=== PATIENT | female | born 1950 | race Caucasian/White ===

== ENCOUNTER 2019-04-08 08:47 | Emergency (ER) | payer MEDICARE, OTHER ==
--- OUTSIDE RECORDS SUMMARY | 2019-04-08 09:02 | XMS REPORT | Continuity of Care Document ---
:1950 External Reference #:[id number] Author Name Kaela Alvarez PA Address [address] [place] [id number] Problems Active Problems Provider Date Gastroesophageal reflux disease Fernando Marquez DO Onset: 01/16/2013 Neurogenic bladder Fernando Marquez DO Onset: 01/16/2013 Insomnia Fernando Marquez DO Onset: 01/16/2013 Benign essential hypertension Fernando Marquez DO Onset: 01/16/2013 Irritable bowel syndrome Fernando Marquez DO Onset: 01/16/2013 Female climacteric state Ian Bowden MD Onset: 09/15/2007 Generalized anxiety disorder Ian Bowden MD Onset: 09/15/2007 Urinary incontinence Ian Bowden MD Onset: 09/15/2007 Hearing loss Ian Bowden MD Onset: 09/15/2007 Family history of diabetes mellitus Ian Bowden MD Onset: 09/15/2007 Social History Type Date Description Comments Sex Unknown Tobacco Use Start: Unknown End: Unknown Former Cigarette Smoker ETOH Use Rarely consumes alcohol Tobacco Use Start: Unknown End: Unknown Patient is a former smoker Smoking Status Reviewed: 01/02/19 Patient is a former smoker Allergies, Adverse Reactions, Alerts Active Allergies Reaction Severity Comments Date Augmentin DIARRHEA Severe 05/10/2014 Eszopiclone Nightmares, Insomnia 02/05/2017 Inactive Allergies NKDA 03/23/2014 Medications Active Medications SIG Qnty Indications Ordering Date Provider Hydrochlorothiazide 1 by mouth 90tabs Fernando Marquez, 02/20/2019 25mg Tablets every day DO Fluticasone Propionate 2 sprays to 9.900ml Fernando Marquez, 06/27/2018 Nasal [place] both nostril DO 50mcg/Act Suspension as needed Citalopram Hydrobromide 1 and 1/2 by 135tabs Fernando Marquez, 12/27/2017 20mg mouth every DO Tablets day Zolpidem Tartrate 1/2 or 1 by 30tabs Fernando Marquez, 02/05/2017 10mg Tablets mouth every DO night at bedtime as needed sleep do not fill till 11/26/18 Celecoxib take 1 capsule 90caps M25.562 Fernando Marquez, 12/17/2016 200mg Capsules daily with DO food generic Atorvastatin Calcium 1 by mouth 90tabs Fernando Marquez, 06/08/2016 10mg Tablets every day DO Diltiazem HCL ER Coated take 1 capsule 90caps Fernando Marquez, 12/04/2015 Beads by mouth daily DO 180mg Caps ER 24HR Cyclobenzaprine HCL take 1 tablet 90tabs M54.5 Fernando Marquez, 06/13/2015 10mg Tablets by mouth every DO 8 hours as needed muscle spasm Alprazolam 1 by mouth 60tabs Fernando Marquez, 02/17/2010 0.25mg Tablets twice a day as DO needed anxiety Omeprazole take 1 capsule 90caps Fernando Marquez, 06/11/[address] every day DO Oxybutynin Chloride take 1 tablet 90tabs N31.9 Fernando Marquez, 01/09/2008 5mg Tablets by mouth daily DO History Medications Lisinopril-Hydrochlorothiazide 1 by mouth 30tabs Jimmy, 03/05/2019 - 20-25mg Tablets every day DO Fernando 03/23/2019 Immunizations CPT Code Status Date Vaccine Reaction Lot # [id number] Given 12/29/2018 Influenza Vac, Quadrivalent, Split, 0.5mL Dosage, Im Use 08688 Given 10/27/2018 Shingrix (Shingles) Zoster Vaccine HZV, Recombinant, Subunit, Adj 53792 Given 06/27/2018 Prevnar 13 Pneumococal Conjugate Vaccine [id number] Given 01/21/2018 Flu Vaccine NOS [facility] Vital Signs Date Vital Result Comment 03/23/2019 2:26pm Weight 168.00 lb Heart Rate 72 /min BP Systolic 164 mmHg BP Diastolic 74 mmHg Respiratory Rate 18 /min Height 67 inches 5'7" BMI (Body Mass Index) 26.3 kg/m2 03/05/2019 1:35pm Weight 171.00 lb Heart Rate 62 /min BP Systolic 154 mmHg BP Diastolic 78 mmHg Respiratory Rate 18 /min Height 67 inches 5'7" BMI (Body Mass Index) 26.8 kg/m2 Results Test Acquired Date Facility Test Result H/L Range Note CBC with Auto Diff-fcmg 12/26/2018 [facility] W[facility] 5.8 K/uL 4.1-11.0 RBC 4.60 M/uL 4.00-5.40 Hemoglobin 14.5 gm/dL 12.0-16.0 Hematocrit 42.1 % 36.0-47.0 MCV 91.6 fL 80.0-97.0 MCH 31.4 pg 27.0-32.0 MCHC 34.3 g/dL 32.0-36.0 RDW 13.3 % 11.5-14.5 PLT Count 258 K/ul 140-400 MPV 7.4 FL 7.1-10.7 Neutrophil 50.0 % 35.0-75.0 Lymphocyte 36.8 % 16.0-52.0 Monocyte 9.1 % 2.0-10.0 Eosinophil 2.8 % 0.0-5.0 Basophil 1.3 % 0.0-4.0 Abs Neutrophils 2.9 K/uL 2.1-8.0 Abs Lymphocytes 2.1 K/uL 0.8-5.5 Abs Monocytes 0.5 K/uL 0.1-1.0 Abs Eosinophils 0.2 K/uL 0.0-0.5 Abs Basophils 0.1 K/uL 0.0-0.3 Basic (BMP) 12/26/2018 [facility] Sodium 142 mmol/L 135-146 1 Potassium 4.4 mmol/L 3.5-5.2 Chloride# 104 mmol/L 97-110 2 Carbon Dioxide 28 mmol/L 24-34 Glucose 105 mg/dL 70-105 BUN 20 mg/dL 6-26 Creatinine 0.9 mg/dL 0.5-1.4 Calcium 9.4 mg/dL 8.5-10.5 3 Female Egfr 62 >60 4 Male Egfr 82 >60 5 Anion Gap 10 mmol/L 5-15 6 Laboratory test finding 12/26/2018 [facility] TSH 1.92 uIU/mL 0.35-4.94 Lipid Treatment 12/26/2018 [facility] Cholesterol 168 mg/dL 50-199 Triglycerides 171 mg/dL 30-200 HDL 58 mg/dL 35-85 7 Chol/ HDL Ratio 2.9 ratio Low 3.7-5.6 VLDL 34 mg/dL High 2-29 LDL (Calc) 76 mg/dL 20-99 8 Alt 16 U/L 3-42 Ast 15 U/L 8-42 Laboratory test finding 12/26/2018 [facility] Magnesium 2.1 mg/dL 1.5-2.7 Hemoglobin A1c 12/26/2018 [facility] Hemoglobin A1c 6.2 % High 4.1-5.9 Estimated Average Glucose Calc 131 mg/dL 71-140 1 Updated reference range on new analyzer 2 Updated reference range on new analyzer 3 Updated reference range 07-16-2018 4 Concerning GFR Guidelines for Americans: Normal function or mild renal disease, if clinically at risk: >/= 60 mL/min Moderately decreased: 30-59 Severely decreased: 15-29 Renal failure: <15 There is reduced accuracy above 60ml/min/1.73 m squared, but the numeric value may be clinically useful in the near 60 range 5 Concerning GFR Guidelines: Normal function or mild renal disease, if clinically at risk: >/= 60 mL/min Moderately decreased: 30-59 Severely decreased: 15-29 Renal failure: <15 There is reduced accuracy above 60ml/min/1.73 m squared, but the numeric value may be clinically useful in the near 60 range Glomerular Filtration Rate (GFR) is estimated based on the CKD-EPI equation, which assumes a steady state for creatinine as recommended by the National Kidney Disease Education Program in conjunction with the National Institutes of Health and the National Kidney Foundation. Clinical conditions in which it may be necessary to measure GFR by using clearance methods include extremes of age and body size, severe malnutrition or obesity, diseases of skeletal muscle, paraplegia or quadriplegia, vegetarian diet, rapidly changing kidney function, and calculation of the dose of potentially toxic drugs that are excreted by the kidneys. 6 Updated Reference Range 7 Per NCEP ATP III Guidelines: Results lower than 40 mg/dL are suggestive of increased risk for coronary artery disease. Results > or = to 60 mg/dL are considered a negative risk factor. 8 Per NCEP ATP III Guidelines: Normal Population <130 Patients with medical conditions: CHD/DM Optimal: <100 Borderline high: 130-159 High: 160-189 Very high: >189 Procedures Date Code Description Status 03/23/2019 10924 Electrocardiogram Complete Completed 01/02/2019 89466 Brief Emotional/Behav Assessment W/ Scoring Doc Per Completed Standard Inst 05/23/2018 [id number] Mammogram Completed 05/03/2017 [id number] Mammogram Completed 07/17/2016 [id number] Colonoscopy Completed 03/26/2016 [id number] Mammogram Completed 11/26/2014 [id number] Mammogram Completed Medical Devices Description No Information Available Encounters Type Date Location Provider Dx Diagnosis Office Visit 03/05/2019 Kaela Gage PA I10 Essential (primary) 1:45p hypertension Z68.26 Body mass index (BMI) 26.0-26.9, adult Office Visit 01/02/2019 1:00p [facility] Fernando Marquez DO Z00.00 Encntr for general adult medical exam w/o abnormal findings K21.9 Gastro-esophageal reflux disease without esophagitis E78.2 Mixed hyperlipidemia K58.0 Irritable bowel syndrome with diarrhea N31.9 Neuromuscular dysfunction of bladder, unspecified R00.2 Palpitations K80.80 Other cholelithiasis without obstruction I10 Essential (primary) hypertension G47.00 Insomnia, unspecified E04.9 Nontoxic goiter, unspecified F41.1 Generalized anxiety disorder R41.840 Attention and concentration deficit G56.01 Carpal tunnel syndrome, RIGHT upper limb M19.049 Primary osteoarthritis, unspecified hand R73.01 Impaired fasting glucose M25.551 Pain in RIGHT hip Z68.27 Body mass index (BMI) 27.0-27.9, adult Assessments Date Code Description Provider 03/23/2019 I10 Essential (primary) hypertension Kaela Alvarez PA 03/23/2019 R00.2 Palpitations Kaela Alvarez PA 03/23/2019 Z68.26 Body mass index (BMI) 26.0-26.9, adult Kaela Alvarez PA 03/05/2019 I10 Essential (primary) hypertension Kaela Alvarez PA 03/05/2019 Z68.26 Body mass index (BMI) 26.0-26.9, adult Kaela Alvarez PA 01/02/2019 Z00.00 Encounter for general adult medical Fernando Marquez DO examination without abnormal findings 01/02/2019 K21.9 Gastro-esophageal reflux disease without MarquezFernando sanchez, esophagitis 01/02/2019 E78.2 Mixed hyperlipidemia Fernando Marquez, DO 01/02/2019 K58.0 Irritable bowel syndrome with diarrhea Fernando Marquez, DO 01/02/2019 N31.9 Neuromuscular dysfunction of bladder, Fernando Marquez, DO unspecified 01/02/2019 R00.2 Palpitations Fernando Marquez, DO 01/02/2019 K80.80 Other cholelithiasis without obstruction Fernando Marquez, DO 01/02/2019 I10 Essential (primary) hypertension MarquezFernando, DO 01/02/2019 G47.00 Insomnia, unspecified Fernando Marquez, DO 01/02/2019 E04.9 Nontoxic goiter, unspecified Fernando Marquez, DO 01/02/2019 F41.1 Generalized anxiety disorder MarquezFernando, DO 01/02/2019 R41.840 Attention and concentration deficit MarquezFernando, DO 01/02/2019 G56.01 Carpal tunnel syndrome, RIGHT upper limb MarquezFernando, DO 01/02/2019 M19.049 Primary osteoarthritis, unspecified hand MarquezFernando, DO 01/02/2019 R73.01 Impaired fasting glucose MarquezFernando, DO 01/02/2019 M25.551 Pain in RIGHT hip MarquezFernando, DO 01/02/2019 Z68.27 Body mass index (BMI) 27.0-27.9, adult MarquezFernando, DO 12/26/2018 E78.2 Mixed hyperlipidemia MarquezFernando, DO 12/26/2018 E78.2 Mixed hyperlipidemia Schedule, Laboratory 12/26/2018 K21.9 Gastro-esophageal reflux disease without Jimmy Fernando esophagitis 12/26/2018 K21.9 Gastro-esophageal reflux disease without Schedule, Laboratory esophagitis 12/26/2018 R73.01 Impaired fasting glucose MarquezFernando, DO 12/26/2018 R73.01 Impaired fasting glucose Schedule, Laboratory 12/26/2018 E78.2 Mixed hyperlipidemia [facility] 12/26/2018 K21.9 Gastro-esophageal reflux disease without [facility] esophagitis 12/26/2018 R73.01 Impaired fasting glucose [facility] Plan of Treatment Future Appointment(s):06/26/2019 8:25 am - Schedule, Laboratory at [facility]2019 1:00 pm - Fernando Marquez, DO at [facility]03/23/2019 - Kaela Alvarez PAI10 Essential (primary) hypertensionComments:Improving with HCTZ and lifestyle changesWill continue to monitorCall with elevated readings at homeFollow up:As [id number] PalpitationsNew Orders:Holter Monitor, Ordered: 03/23/19Comments: EKG stable compared to previousDiscussed options of Holter, stress testWill check Holter for evalConsider stress test if normal/symptoms worsen/persistTo ER with chest pain, SOBZ68.26 Body mass index (BMI) 26.0-26.9, adult Functional Status Description No Information Available Mental Status Description No Information Available Referrals Description No Information Available
--- OUTSIDE RECORDS SUMMARY | 2019-04-08 09:03 | XMS REPORT | Continuity of Care Document ---
:1950 External Reference #:[id number] Author Name Nora Vargas, [facility] Address [address] [place] [id number] Care Team Providers Name Role Phone Fernando Marquez DO - Family Medicine Care Team Information Free Lance Model Problems Description No Information Available Social History Type Date Description Comments Sex Unknown Tobacco Use Start: Unknown End: Unknown Quit ETOH Use Currently consumes alcohol Recreational Drug Use Marijuana Allergies, Adverse Reactions, Alerts Description No Known Drug Allergies Medications Active Medications SIG Qnty Indications Ordering Provider Date Zolpidem Tartrate 1 tab by mouth Unknown Tablets every night Celecoxib 1 by mouth every Unknown Capsules day Omeprazole 1 capsule by Unknown 20mg Capsules DR mouth every day Multi Complete 1 cap by mouth Unknown Capsules every other day Atorvastatin Calcium 1 by mouth every Fernando Marquez, 10mg night DO Tablets Alprazolam 1 tablet by Fernando Marquez, 0.25mg Tablets mouth as needed DO Cyclobenzaprine HCL Take 1 Tablet By Unknown 10mg Mouth Every 8 Tablets Hours as Needed Muscle Spasm Cartia XT 1 cap by mouth Fernando Marquez, 180mg Caps ER 24HR every day DO Citalopram Hydrobromide 1 tab by mouth Fernando Marquez, 20mg every day DO Tablets Oxybutynin Chloride 1 tab by mouth Fernando Marquez, 5mg every day DO Tablets Medications Administered in Office Medication SIG Qnty Indications Ordering Provider Date Depomedrol 40mg/1cc Nora Vargas, 01/28/2019 (methylprednisolone acetate) [facility] Injection Depomedrol 40mg/1cc Nora Vargas., 09/26/2018 (methylprednisolone acetate) [facility] Injection Depo-Medrol 20mg Nora Vargas, 09/26/2018 Injection [facility] Depomedrol 40mg/1cc Nora Vargas., 06/20/2018 (methylprednisolone acetate) [facility] Injection Betamethasone Acetate & Sodium Nora Vargas S., 06/20/2018 Phosphate 3 MG Of Each [facility] Injection Betamethasone Acetate & Sodium Nora Vargas S., 05/21/2017 Phosphate 3 MG Of Each [facility] Injection Betamethasone Acetate & Sodium VargasNora S., 05/21/2017 Phosphate 3 MG Of Each [facility] Injection Betamethasone Acetate & Sodium Nora Vargas S., 11/26/2016 Phosphate 3 MG Of Each [facility] Injection Betamethasone Acetate & Sodium Nora Vargas S., 08/20/2016 Phosphate 3 MG Of Each [facility] Injection Betamethasone Acetate & Sodium Nora Vargas S., 08/20/2016 Phosphate 3 MG Of Each [facility] Injection Methylprednisolone acetate Nora Vargas, 10/04/2015 (Depomedrol) 80mg injection [facility] Injection Methylprednisolone acetate Nora Vargas, 08/11/2014 (Depomedrol) 80mg injection [facility] Injection Methylprednisolone acetate Nora Vargas, 08/11/2014 (Depomedrol) 80mg injection [facility] Injection Methylprednisolone acetate Nora Vargas, 07/10/2013 (Depomedrol) 80mg injection [facility] Injection Immunizations Description No Information Available Vital Signs Date Vital Result Comment 02/19/2019 10:15am BP Systolic 166 mmHg BP Diastolic 79 mmHg Body Temperature 96.3 F Heart Rate 64 /min Height 67 inches 5'7" [place] body weight in kilograms 61 kg O2 % [facility]ldC Oximetry 97 % 01/28/2019 1:48pm BP Systolic 165 mmHg BP Diastolic 71 mmHg Body Temperature 97.6 F Heart Rate 68 /min Height 67 inches 5'7" Weight 179.00 lb BMI (Body Mass Index) 28.0 kg/m2 BSA (Body Surface Area) 1.93 m2 [place] body weight in kilograms 61 kg O2 % BldC Oximetry 99 % Results Description No Information Available Procedures Date Code Description Status 02/19/2019 16212 Radiologic Exam Hip Unilateral With Pelvis 2-3 Views Completed 01/28/2019 Asp./Injection major joint Completed 09/26/2018 Asp./Injection major joint Completed Medical Devices Description No Information Available Encounters Type Date Location Provider Dx Diagnosis Office Visit 02/19/2019 Orthopaedic Office Nora Vargas M16.12 Unilateral primary 10:15a S., [facility] osteoarthritis, left hip M25.552 Pain in left hip Office Visit 01/28/2019 Orthopaedic Sam M70.61 Trochanteric 2:00p Office Nora Rincon, bursitis, right [facility] hip M70.62 Trochanteric bursitis, left hip M25.551 Pain in right hip M25.552 Pain in left hip Assessments Date Code Description Provider 02/19/2019 M16.12 Unilateral primary osteoarthritis, left Nora Vargas , [facility] hip 02/19/2019 M25.552 Pain in left hip Nora Vargas., [facility] 01/28/2019 M70.61 Trochanteric bursitis, right hip Nora Vargas., [facility] 01/28/2019 M70.62 Trochanteric bursitis, left hip Nora Vargas S., [facility] 01/28/2019 M25.551 Pain in right hip Nora Vargas., [facility] 01/28/2019 M25.552 Pain in left hip Nora Vargas., [facility] 09/26/2018 M17.12 Unilateral primary osteoarthritis, left Nora Vargas , [facility] knee 09/26/2018 M25.562 Pain in left knee Nora Vargas, [facility] Plan of Treatment Future Appointment(s):04/06/2019 10:30 am - Nora Vargas [facility] at [facility]02/19/[facility] Un[facility] primary osteoarthritis, left hipNew Orders:Intra-articular hip injection, left, Scheduled: 02/26/19M25.552 Pain in left hipNew Orders:Intra-articular hip injection, left, Scheduled: 02/26/19 Functional Status Description No Information Available Mental Status Description No Information Available Referrals Description No Information Available
--- OUTSIDE RECORDS SUMMARY | 2019-04-08 09:03 | XMS REPORT | Continuity of Care Document ---
:1950 External Reference #:[id number] Author Name Kaela Alvarez PA Address [address] [place] [id number] Problems Active Problems Provider Date Gastroesophageal reflux [...] Medications SIG Qnty Indications Ordering Date Provider Lisinopril-Hydrochlorothia 1 by mouth 30tabs Fernando Marquez, 03/05/2019 zide every day DO 20-25mg Tablets Hydrochlorothiazide 1 by mouth 30tabs Fernando Marquez, 02/20/2019 25mg Tablets every day DO Fluticasone Propionate 2 sprays to 9.900ml Fernando Marquez, 06/27/2018 Nasal [place] both nostril DO 50mcg/Act Suspension as needed [...] 01/09/2008 5mg Tablets by mouth daily DO Immunizations CPT Code Status Date Vaccine Reaction Lot # [id number] Given 12/29/2018 Influenza Vac, Quadrivalent, Split, 0.5mL Dosage, Im Use 85743 Given 10/27/2018 Shingrix (Shingles) Zoster Vaccine HZV, Recombinant, Subunit, Adj [id number] Given 06/27/2018 Prevnar 13 Pneumococal Conjugate Vaccine [id number] Given 01/21/2018 Flu Vaccine NOS [facility] Vital Signs Date Vital Result Comment 03/05/2019 1:35pm Weight 171.00 lb Heart Rate 62 /min BP Systolic 154 mmHg BP Diastolic 78 mmHg Respiratory Rate 18 /min Height 67 inches 5'7" BMI (Body Mass Index) 26.8 kg/m2 01/02/2019 1:00pm Weight 177.00 lb Heart Rate 60 /min BP Systolic 124 mmHg BP Diastolic 64 mmHg Respiratory Rate 17 /min Height 67 inches 5'7" BMI (Body Mass Index) 27.7 kg/m2 Results Test Acquired Date Facility Test [...] Magnesium 2.1 mg/dL 1.5-2.7 Hemoglobin A1c 12/26/2018 [facility] Hemoglobin A1c 6.2 % High 4.1-5.9 Estimated [...] high: >189 Procedures Date Code Description Status 01/02/2019 01591 Brief Emotional/Behav Assessment W/ Scoring Doc Per Completed [facility] 05/23/2018 [id number] Mammogram Completed 05/03/2017 [id number] Mammogram Completed 07/17/2016 [id number] Colonoscopy Completed 03/26/2016 [id number] Mammogram Completed 11/26/2014 [id number] Mammogram Completed Medical Devices Description No Information Available Encounters Type Date Location Provider Dx Diagnosis Office Visit 01/02/2019 [facility] Fernando Marquez DO Z00.00 Encntr for general 1:00p adult medical exam w/o abnormal findings K21.9 [...] 27.0-27.9, adult Assessments Date Code Description Provider 03/05/2019 I10 Essential (primary) hypertension Kaela Alvarez PA 03/05/2019 Z68.26 Body mass index (BMI) 26.0-26.9, adult Kaela Alvarez PA 01/02/2019 Z00.00 Encounter for general adult medical Fernando Marquez DO examination without abnormal findings 01/02/2019 K21.9 Gastro-esophageal reflux disease without Fernando Marquez DO esophagitis 01/02/2019 E78.2 Mixed hyperlipidemia Fernando Marquez DO 01/02/2019 K58.0 Irritable bowel syndrome with diarrhea Fernando Marquez DO 01/02/2019 N31.9 Neuromuscular dysfunction of bladder, Fernando Marquez DO unspecified 01/02/2019 R00.2 Palpitations Fernando Marquez DO 01/02/2019 K80.80 Other cholelithiasis without obstruction Fernando Marquez DO 01/02/2019 I10 Essential (primary) hypertension Fernando Marquez, DO 01/02/2019 G47.00 Insomnia, unspecified Fernando Marquez, DO 01/02/2019 E04.9 Nontoxic goiter, unspecified Fernando Marquez, DO 01/02/2019 F41.1 Generalized anxiety disorder Fernando Marquez, DO 01/02/2019 R41.840 Attention and concentration deficit Fernando Marquez, DO 01/02/2019 G56.01 Carpal tunnel syndrome, RIGHT upper limb Fernando Marquez, DO 01/02/2019 M19.049 Primary osteoarthritis, unspecified hand Fernando Marquez, DO 01/02/2019 R73.01 Impaired fasting glucose Fernando Marquez, DO 01/02/2019 M25.551 Pain in RIGHT hip Fernando Marquez, DO 01/02/2019 Z68.27 Body mass index (BMI) 27.0-27.9, adult Fernando Marquez, DO 12/26/2018 E78.2 Mixed hyperlipidemia Fernando Marquez, DO 12/26/2018 E78.2 Mixed hyperlipidemia Schedule, Laboratory 12/26/2018 K21.9 Gastro-esophageal reflux disease without MarquezFernando DO esophagitis 12/26/2018 K21.9 Gastro-esophageal reflux disease without Schedule, Laboratory esophagitis 12/26/2018 R73.01 Impaired fasting glucose Fernando Marquez, DO 12/26/2018 R73.01 Impaired fasting glucose Schedule, Laboratory 12/26/2018 E78.2 Mixed hyperlipidemia [facility] 12/26/2018 K21.9 Gastro-esophageal reflux disease without [facility] esophagitis 12/26/2018 R73.01 Impaired fasting glucose [facility] Plan of Treatment Future Appointment(s):03/20/2019 1:45 pm - Kaela Alvarez PA at [facility]2019 8:25 am - Schedule, Laboratory at [facility]07/03/2019 1:00 pm - Jimmy Fernando DO at [facility]03/05/2019 - Kaela Alvarez PAI10 Essential (primary) hypertensionComments:Will d/c HCTZ and try lisinopril-HCTZContinue to monitor BP at home Call if persistently elevated orwith CP, SOB, dizziness, palpitationsFollow up:2 weeks f/u HTNZ68.26 Body mass index (BMI) 26.0-26.9, adult Functional Status Description No Information Available Mental Status Description No Information Available Referrals Description No Information Available
--- NOTE | 2019-04-08 09:44 | UC ---
Abdominal Pain Female HPI - HPI Summary HPI Summary: LLQ pain x 2 days pain is constant, no radiation pain is 4 out 10 , worse with movement and applying pressure better with rest and Tylenol , denies any fever, no chills, no n/v/d/c/, no urinary sx had a fall 3 days ago , injury to her left lower ribs , but it is getting better - History of Current Complaint Chief Complaint: UCGeneralIllness Stated Complaint: LEFT LOWER ABDOMINAL PAIN Time Seen by Provider: 04/08/19 09:19 Hx Obtained From: Patient Onset/Duration: Gradual Onset, Lasting Days - 2, Still Present Timing: Constant Severity Initially: Moderate Severity Currently: Moderate Pain Intensity: 4 Location: Discrete At: LLQ Radiates: No Character: Aching, Dull Aggravating Factor(s): Movement Alleviating Factor(s): Position Associated Signs and Symptoms: Negative: Diaphoresis, Fever, Cough, Chest Pain, Dizzy, Back Pain, Constipation, Decreased Appetite, Vaginal Bleeding, Nausea, Vomiting, Diarrhea Allergies/Adverse Reactions: Allergies Allergy/AdvReac Type Severity Reaction Status Date / Time No Known Allergies Allergy Verified 04/08/19 09:17 Home Medications: Home Medications ALPRAZolam TAB* [Xanax TAB*] 0.25 mg PO Q6H PRN 04/08/19 [History Confirmed ] Atorvastatin* [Lipitor*] 10 mg PO 1700 04/08/19 [History Confirmed 04/08/19] Diltiazem CD CAP* [Cardizem CD CAP*] 180 mg PO DAILY 04/08/19 [History Confirmed 04/08/19] Hydrochlorothiazide TAB* [Hydrodiuril TAB*] 25 mg PO DAILY 04/08/19 [History Confirmed 04/08/19] Omeprazole 20 mg PO DAILY 04/08/19 [History Confirmed 04/08/19] Zolpidem Tartrate [Ambien] 10 mg PO ONCE PRN 04/08/19 [History Confirmed ] PMH/Surg Hx/FS Hx/Imm Hx - Additional Past Medical History Additional PMH: high cholesterol acid reflux [ End ] Cardiovascular History: Cardiac Disease, Hypertension GI/ History: Gastroesophageal Reflux - Surgical History Surgical History: None - Family History Known Family History: Positive: Hypertension - Social History Alcohol Use: Weekly Substance Use Type: None Smoking Status (MU): Former Smoker Review of Systems All Other Systems Reviewed And Are Negative: Yes Constitutional: Positive: Negative Skin: Positive: Negative Eyes: Positive: Negative ENT: Positive: Negative Gastrointestinal: Positive: Abdominal Pain. Negative: Vomiting, Diarrhea, Nausea Genitourinary: Positive: Negative Is Patient Immunocompromised?: No Physical Exam Triage Information Reviewed: Yes Appearance: Well-Appearing, No Pain Distress, Well-Nourished Vital Signs: Initial Vital Signs Temp 97.4 F 04/08/19 09:08 Pulse 57 04/08/19 09:08 Resp 18 04/08/19 09:08 BP 139/79 04/08/19 09:08 Pulse Ox 97 04/08/19 09:08 Vital Signs Reviewed: Yes Eye Exam: Normal Eyes: Positive: Conjunctiva Clear ENT: Positive: Normal ENT inspection, Hearing grossly normal, Pharynx normal Neck exam: Normal Neck: Positive: Supple, Nontender, No Lymphadenopathy Respiratory: Positive: Chest non-tender, Lungs clear, Normal breath sounds Cardiovascular: Positive: RRR, No Murmur, Pulses Normal Abdomen Description: Positive: Soft, Other: - tenderness LLQ. Negative: CVA Tenderness (R), CVA Tenderness (L), Distended, Guarding Bowel Sounds: Positive: Present Diagnostics - Radiology No standard instances Radiology Interpretation Completed By: Radiologist Summary of Radiographic Findings: ct abd/pelvic with po contrast: IMPRESSION: # . Negative for colonic diverticulosis. Normal appendix documented. #. Small hiatal hernia. #. Multiple low suspicion liver lesions with the dominant lesions large enough to characterize consistent with benign cysts. #. Cholelithiasis. Abd Pain Female Course/Dx - Differential Dx/Diagnosis Provider Diagnosis: Abdominal pain Discharge ED - Sign-Out/Discharge Documenting (check all that apply): Patient Departure All imaging exams completed and their final reports reviewed: Yes - Discharge Plan Condition: Stable Disposition: HOME Patient Education Materials: Abdominal Pain (ED) Referrals: Fernando Marquez DO [Primary Care Provider] - Additional Instructions: normal UA, normal abdominal CT will cont. to monitor for few days, may take Tylenol as needed for pain please follow up with your pcp in few days , go to ED if increase pain or any new symptoms - Billing Disposition and Condition Condition: STABLE Disposition: Home
[2019-04-08 11:57] VITALS: BP 129/71
== END 2019-04-08 12:02 | disposition home or self-care (01) ==
LOC: UCCORT 08:47
DX: R10.32 Left lower quadrant pain (principal); K44.9 Diaphragmatic hernia without obstruction or gangrene; K80.20 Calculus of gallbladder without cholecystitis without obstruction; E78.00 Pure hypercholesterolemia, unspecified; K21.9 Gastro-esophageal reflux disease without esophagitis; Z79.899 Other long term (current) drug therapy; Z87.891 Personal history of nicotine dependence
CPT/HCPCS: 74176; 81003; 99202; G0463